=== PATIENT | female | born 2000 | race Caucasian/White ===

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

== ENCOUNTER 2019-01-17 20:39 | Emergency (ER) | payer OTHER ==
[~2019-01-17] VITALS: Ht 154.9 cm; Wt 86.2 kg
[~2019-01-17 20:39] MED LIST changes: +BIRTH CONTROL
[2019-01-17] MEDS ORDERED: Zantac150 MG PO (21:05)
[2019-01-17] MEDS ORDERED: KETO10 PO (22:07)
[2019-01-17] MEDS ORDERED: Augmentin 875-1 EACH PO (22:07)
== END 2019-01-17 22:22 | disposition home or self-care (01) ==
LOC: ER 20:39
DX: K04.7 Periapical abscess without sinus (principal); Z79.899 Other long term (current) drug therapy
CPT/HCPCS: 99282

== ENCOUNTER 2025-03-27 13:39 | Emergency (ER) | payer OTHER ==
[~2025-03-27] VITALS: Ht 157.5 cm; Wt 86.2 kg
[~2025-03-27 13:39] MED LIST changes: +Augmentin 875-1 EACH PO; +KETO10 PO; +Zantac150 MG PO
[2025-03-27 14:04] VITALS: BP 142/90
[2025-03-27] MEDS ORDERED: ALBU90OI INH (15:27)
[2025-03-27] MEDS ORDERED: BENZ100A PO (15:27)
== END 2025-03-27 15:35 | disposition home or self-care (01) ==
LOC: ER 13:39
DX: G93.31 Postviral fatigue syndrome (principal); R05.9 Cough, unspecified; R03.0 Elevated blood-pressure reading, without diagnosis of hypertension
CPT/HCPCS: 71046; 99283-25

== ENCOUNTER 2025-05-02 13:54 | Emergency (ER) | payer OTHER ==
[~2025-05-02] VITALS: Ht 157.5 cm; Wt 90.7 kg
[~2025-05-02 13:54] MED LIST changes: +ALBU90OI INH
[2025-05-02 14:22] VITALS: BP 140/76
[2025-05-02 14:49] LABS: BASOPHILS ABSOLUTE AUTO 0.02 K/mm3 (0.00-0.23); BASOPHILS PERCENT AUTO 0 % (0-2); EOSINOPHILS ABSOLUTE AUTO 0.23 K/mm3 (0.00-0.68); EOSINOPHILS PERCENT AUTO 3 % (0-6); Hematocrit 40.4 % (33.0-51.0); Hemoglobin 13.1 g/dL (11.5-16.0); IMMATURE GRAN ABSOLUTE AUTO 0.03 K/mm3 (0.00-0.10); IMMATURE GRAN PERCENT AUTO 0 % (0-1); LYMPHOCYTES ABSOLUTE AUTO 1.60 K/mm3 (0.84-5.20); LYMPHOCYTES PERCENT AUTO 19 % (21-46); MONOCYTES ABSOLUTE AUTO 0.71 K/mm3 (0.16-1.47); MONOCYTES PERCENT AUTO 8 % (4-13); Mean Corpuscular HGB Conc 32.4 g/dL (31.5-36.5); Mean Corpuscular Volume 87 fL (80-100); NEUTROPHILS ABSOLUTE AUTO 5.98 K/mm3 (1.96-9.15); NEUTROPHILS PERCENT AUTO 70 % (41-73); NRBC ABSOLUTE 0.00 K/mm3 (0.00-0.02); NRBC Auto 0.0 /100 WBC (0.0-0.2); Platelet Count 294 K/mm3 (150-400); RDW Coefficient Variation 12.0 % (11.7-14.2); RDW Standard Deviation 38.3 fL (35.1-46.3)
[2025-05-02 15:11] LABS: Influenza A, PCR NEGATIVE (NEGATIVE); Influenza B, PCR NEGATIVE (NEGATIVE); Resp Syncytial Virus, PCR NEGATIVE (NEGATIVE); SARS-Cov-2 (COVID-19) PCR, MMC NEGATIVE (NEGATIVE)
[2025-05-02 15:21] LABS: Alanine Aminotransfer (ALT/SGP 25.0 U/L (12-78); Albumin, Blood 3.9 g/dL (3.4-5.0); Albumin/Globulin Ratio 1.0 (0.8-1.8); Anion Gap 4.0 mmol/L (3-11); Aspartate Aminotrans (AST/SGOT 15.0 U/L (12-37); Bilirubin, Total 0.4 mg/dL (0.1-1.0); Blood Urea Nitrogen 14.0 mg/dL (8-24); CO2, Blood 29.0 mmol/L (21-32); Calcium, Blood 9.2 mg/dL (8.5-10.1); Chloride, Blood 109.0 mmol/L (98-108); Creatinine, Blood 0.61 mg/dL (0.40-1.00); Globulin, Blood 4.1 g/dL (2.2-4.0); Glucose, Blood 90.0 mg/dL (70-99); Potassium, Blood 3.9 mmol/L (3.5-5.5); Sodium, Blood 138.0 mmol/L (136-145); Total Protein, Blood 8.0 g/dL (6.4-8.2)
[2025-05-02] MEDS ORDERED: CODEINE-GUAIFE120 M1 PO (16:06)
[2025-05-02] MEDS ORDERED: OMEP20ER PO (16:06)
== END 2025-05-02 17:04 ==
LOC: ER 13:54
PROVIDERS: Physician Assistant
DX: K21.9 Gastro-esophageal reflux disease without esophagitis (principal); R05.9 Cough, unspecified; Z79.899 Other long term (current) drug therapy
CPT/HCPCS: 71046; 80053; 85025; 87637; 99283-25